=== PATIENT | female | born 2000 | race Caucasian/White ===

== ENCOUNTER 2022-12-31 15:57 | Inpatient (IN) | payer MEDICAID ==
[2022-12-31] VITALS (19 sets, daily range): BP systolic 115–138; BP diastolic 59–95; PULSE 78–98; TEMP 97.4–97.8
[~2022-12-31] VITALS: Ht 175.3 cm; Wt 82.3 kg
[2022-12-31] MEDS ORDERED: PRENATAL TABLET PO (16:19)
--- NOTE | 2022-12-31 16:30 | NUR ---
1600- Pt arrives on unit ambulatory with complaints of UCs and SROM at 1500. 1609- Pt into bed, EFM and TOCO on and tracing. O2 sat monitor on and tracing maternal HR. Assessment completed. Pt states she started contracing a couple of hours ago and then noticed yellow tinged fluid at 1500. 1625- SVE, amniotrace positive, 2/80/-2, small amount of thick, yellow fluid noted on exam gloves. Updated on POC.
[2022-12-31 17:30] LABS: BASO # 0.1 K/mm3 (0.0-0.2); BASO % 0.6 % (0.0-2.0); EOS # 0.2 K/mm3 (0.0-0.7); EOS % 1.1 % (0.0-4.0); GRAN # 12.8 K/mm3 (1.4-6.5); GRAN % 79.3 % (42.2-75.2); HEMATOCRIT 34.1 % (37.0-47.0); HEMOGLOBIN 11.5 g/dl (12.5-16.0); LYMPH # 1.8 K/mm3 (1.2-3.4); LYMPH % 11.3 % (20.0-51.0); MEAN CELL VOLUME 89 fl (80.0-100.0); MEAN CORPUSCULAR HEMOGLOBIN 30 pg (27-31); MEAN CORPUSCULAR HGB CONC 34 g/dl (33.0-37.0); MEAN PLATELET VOLUME 11.4 fl (7.4-10.4); MONO # 1.1 K/mm3 (0.1-0.6); MONO % 6.8 % (1.7-9.3); PLATELET COUNT 260 K/mm3 (130-400); RED BLOOD COUNT 3.82 M/mm3 (4.10-5.30); REDCELL DISTRIBUTION WIDTH-CV 13.9 % (11.5-14.5)
--- NOTE | 2022-12-31 18:28 | NUR ---
Pt taken off monitors at this time to ambulate in the hallway with significant other. Pt breathing well through her ctx, that are mild when palpated by this RN. Pt denies any other needs at this time.
--- NOTE | 2022-12-31 19:10 | NUR ---
Pt placed back on monitors. Pt also given birthing ball to bounce on at this time to help with discomfort from her ctx. RN remains at bedside due to poor tracing from pt being on the birthing ball. Pt continues to breathe through her ctx, significant other at bedside for support. No other needs voiced at this time.
--- NOTE | 2022-12-31 19:30 | NUR ---
tracing broken and RN unable to determine baseline, accels or decels. RN at bedside during this time adjusting US. Pt on birthing ball for comfort. Pt denies any needs at this time.
--- NOTE | 2022-12-31 20:01 | NUR ---
Pt remains on birthing ball at this time, coping well with ctx. Pt does report feeling them more intensely at this time but she is able to cope well. Significant other remains at bedside for support.
--- NOTE | 2022-12-31 20:45 | NUR ---
Pt positioned to sitting on the side of the bed for epidural. RN at bedside monitoring FHT. Anesthesia at bedside at 0 for epidural placement. Questions voiced and answered by Anesthesia and RN.
[2023-01-01] VITALS (20 sets, daily range): BP systolic 98–138; BP diastolic 57–91; PULSE 74–97; TEMP 97.7–98.5
--- NOTE | 2023-01-01 00:15 | NUR ---
Dr Elder at bedside, checks pt and she is complete at this time. Dr. Elder tells the pt it is time to start pushing and RN and Dr jalil prepping the pt and bringing in supplies. Pt placed in semi-fowlers position and legs placed in stirrups.
--- NOTE | 2023-01-01 00:30 | NUR ---
Dr. Elder and RN at bedside, currently beginning to push with pt. Late decels noted both audibly and on the tracing. Dr. Elder and RN observing and monitoring recovery during this time. Tracing is broken and RN is unable to determine decels, accels or variables.
--- NOTE | 2023-01-01 00:45 | NUR ---
Pt continues to push during this tracing, RN unable to determine baseline, Dr. Elder and RN remain at bedside monitoring heart rate and recovery after audibly hearing decels in heart rate, with Dr. Elder using scalp stimulation for intervention. FHT recover well but tracing is broken and interupted during this time due to maternal pushing and positioning.
--- NOTE | 2023-01-01 01:00 | NUR ---
Pt continues pushing, Dr. Elder and RN at bedside coaching pt. Pt delivers a viable female fetus at 0058 via , infant with nucal x1, meconium stained. strong cry, bulb suctioned by Dr. Elder and placed on mother's abdomen. Dried and stimulated by nursery RN and this RN. Delayed cord clamping observed, with cord then clamped and cut by FOB. Infant then placed skin to skin with mom and covered with warm blankets. Placenta delivered, cord blood and cord gases collected and 2nd degree perineal laceration repaired by Dr. Elder. Pt then cleaned up, ice pack applied to perineum and pt readjusted in bed and positioned for comfort. Will continue to monitor.
[2023-01-01] MEDS ORDERED: IBU800 M1 PO (07:36)
[2023-01-02 08:00] VITALS: BP 126/83; PULSE 78; TEMP 97.5
--- NOTE | 2023-01-02 13:30 | NUR ---
DISCHARGE TEACHING COMPLETED. EDUCATED ON FOLLOW UP APPOINTMENT AND PRESCIPTION. QUESTIONS INVITED AND ANSWERED.
== END 2023-01-02 16:45 | disposition home or self-care (01) | DRG 807 ==
LOC: LDRO 15:57 → LDR 16:00 → OB 01-01 03:15
PROVIDERS: Obstetrics & Gynecology; ADMIT Obstetrics & Gynecology
PROC: 10E0XZZ Delivery of Products of Conception, External Approach (ICD-10-PCS; principal; 2023-01-01)
PROC: 0KQM0ZZ Repair Perineum Muscle, Open Approach (ICD-10-PCS; 2023-01-01)
DX: O48.0 Post-term pregnancy (principal); Z37.0 Single live birth; Z3A.40 40 weeks gestation of pregnancy; O70.1 Second degree perineal laceration during delivery; O77.0 Labor and delivery complicated by meconium in amniotic fluid; O76 Abnormality in fetal heart rate and rhythm complicating labor and delivery; O69.81X0 Labor and delivery complicated by cord around neck, without compression, not applicable or unspecified; Z67.91 Unspecified blood type, Rh negative
CPT/HCPCS: J2590; J2795; J7120